=== PATIENT | female | born 1945 | race American Indian/Alaskan Native ===

== ENCOUNTER 2017-05-17 15:30 | Emergency (ER) | payer MEDICARE ==
[2017-05-17 15:35] VITALS: RESP 20
--- NOTE | 2017-05-17 16:03 | C.PDOC ---
Time Seen by Provider: 05/17/17 15:51 Chief Complaint (Nursing): Upper Extremity Problem/Injury Past Medical History Vital Signs: Last Vital Signs Temp 99.1 F 05/17/17 15:34 Pulse 70 05/17/17 15:34 Resp 20 05/17/17 15:34 BP 111/58 L 05/17/17 15:34 Pulse Ox 97 05/17/17 15:34 - Medical History PMH: HTN - [facility] Procedures LEFT HEART CARDIAC CATH (06/19/15) LT HEART ANGIOCARDIOGRAM (06/19/15) - Social History Hx Alcohol Use: No Hx Substance Use: No - Immunization History Hx Tetanus Toxoid Vaccination: No Hx Influenza Vaccination: No Hx Pneumococcal Vaccination: No ED Course And Treatment O2 Sat by Pulse Oximetry: 97 Disposition - Disposition Forms: [employer] (Malaysian) - Scribe Statement The provider has reviewed the documentation as recorded by the Scribe Connie Helms
--- NOTE | 2017-05-17 16:03 | C.PDOC ---
History Of Present Illness 72 year old female was brought to the ED by EMS after tripping and falling in the lobby of her apartment building just prior to arrival. Patient states she feel on her right side and has pain to her right shoulder, knee, and mildly in the ribs. She denies LOC,head trauma. - HPI Time Seen by Provider: 05/17/17 15:51 Chief Complaint (Nursing): Upper Extremity Problem/Injury History Per: Patient, EMS History/Exam Limitations: no limitations Onset/Duration Of Symptoms: Hrs Injury Occurred (Timing): Just Before Arrival Location Of Injury: Right: Arm, Knee (chronic), Shoulder Severity: Moderate Recent travel outside of the [place]: No - Fall Fall:Prior To Injury: Tripped Past Medical History Reviewed: Historical Data, Nursing Documentation, Vital Signs Vital Signs: Last Vital Signs Temp 98.3 F 05/17/17 17:22 Pulse 74 05/17/17 17:22 Resp 20 05/17/17 17:22 BP 138/70 05/17/17 17:22 Pulse Ox 97 05/17/17 17:55 - Medical History PMH: HTN Other Surgeries: hysterectomy - [facility] Procedures LEFT HEART CARDIAC CATH (06/19/15) LT HEART ANGIOCARDIOGRAM (06/19/15) Family History: States: Unknown Family Hx - Social History Hx Alcohol Use: No Hx Substance Use: No - Immunization History Hx Tetanus Toxoid Vaccination: No Hx Influenza Vaccination: No Hx Pneumococcal Vaccination: No Review Of Systems Constitutional: Negative for: Fever, Chills Cardiovascular: Negative for: Chest Pain Respiratory: Negative for: Shortness of Breath Gastrointestinal: Negative for: Nausea, Vomiting Musculoskeletal: Positive for: Shoulder Pain (right shoulder pain), Arm Pain ( right arm pain), Leg Pain (right knee pain ) Neurological: Negative for: Headache, Dizziness Physical Exam - Physical Exam Appears: Non-toxic, No Acute Distress, Other (Patient is obese ) Skin: Warm, Dry, Other (Small ecchymotic lesion to right lateral upper arm ) Head: Atraumatic, Normacephalic, No Tenderness Eye(s): bilateral: Normal Inspection, PERRL, EOMI Oral Mucosa: Moist Neck: Supple Chest: Symmetrical, No Deformity, No Tenderness Cardiovascular: Rhythm Regular Gastrointestinal/Abdominal: Soft, No Tenderness, No Distention, No Guarding, No Rebound Extremity: Normal ROM, Tenderness (tenderness to right lateral shoulder and antertior right knee ), No Calf Tenderness, Capillary Refill (good capillary refill, less than 2 seconds ), No Deformity, No Swelling Neurological/Psych: Oriented x3, Normal Speech ED Course And Treatment O2 Sat by Pulse Oximetry: 97 (room air ) Pulse Ox Interpretation: Normal - Other Rad Right Shoulder Radiograph X-Ray: Viewed By Me, Read By Radiologist Interpretation: FINDINGS: BONES: Normal. No fracture. JOINTS: Preserved glenohumeral relationship, acromioclavicular degenerative change: Mild. SOFT TISSUES: Normal. OTHER FINDINGS: None. IMPRESSION: No acute findings related to/accounting for the clinical presentation. Right Ribs and Chest Radiograph X-Ray: Viewed By Me, Read By Radiologist Interpretation: FINDINGS: RIGHT RIBS: No fracture or focal lesion visualized. LUNGS: Clear. PLEURA: Cardiomegaly. No evidence of acute, significant cardiovascular disease. CARDIOVASCULAR: Normal sized heart. No pulmonary vascular congestion. OTHER FINDINGS: Large gallstone confirmed on CT scan performed [id number]. IMPRESSION: Unremarkable radiographs of the chest and right ribs. No right rib fracture. Right Knee Radiograph X-Ray: Viewed By Me, Read By Radiologist Interpretation: Findings: Examination markedly limited by habitus. Diffuse osseous demineralization limits evaluation for acute fracture lines. Severe degenerative changes including tricompartmental joint space narrowing and tenting of the intercondylar notch. Large suprapatellar and smaller infrapatellar enthesophyte. Suspect chondrocalcinosis. Faint lucency seen on a single view within the mid distal femur which is vertically oriented appears related to degenerative changes and vascular groove however nondisplaced fracture cannot be entirely excluded. No significant suprapatellar joint effusion appreciated. Impression: Examination markedly limited by habitus. Diffuse osseous demineralization and severe degenerative changes as above. Faint lucency seen on a single view within the mid distal femur appears vertically oriented in favored secondary to degenerative changes and possibly vascular groove however nondisplaced fracture cannot be entirely excluded. If indicated, cross-sectional imaging may be considered for further evaluation. Correlate clinically. Progress Note: Studies of the knees, ribs, and shoulder were ordered. Patient was given motrin and ice was applied to areas of impact from fall. XRays reviewed by me and radiology report reviewed. Patient remained alert and was able to ambulate with mild discomfort. I explained results and provided Rx. Recommend rest, ice and to follow up with PCP Disposition Counseled Patient/Family Regarding: Studies Performed, Diagnosis, Need For Followup, Rx Given - Disposition Referrals: Rudy Veras MD [Staff Provider] - Disposition: HOME/ ROUTINE Disposition Time: 16:59 Condition: STABLE Additional Instructions: Your xrays show no fracture and arthritis to knee. Please apply ice to area 15 minutes three times a day. Take Tylenol or Motrin as needed for pain every 6 hours, with food to not upset stomach. Apply gel to areas of pain. Follow up with orthopedic if pain persists over one week. Prescriptions: Diclofenac Sodium [Voltaren] 100 gm TP DAILY #1 gel..gram. Instructions: Contusion in Adults (DC) Forms: [employer] (Maltese) - POA Present On Arrival: Falls Or Trauma - Clinical Impression Clinical Impression: Shoulder contusion, Rib contusion, Knee contusion - PA / POND SAWYER / Resident Statement MD/DO has reviewed & agrees with the documentation as recorded. - Scribe Statement The provider has reviewed the documentation as recorded by the Scribnargis Helms All medical record entries made by the Joseibnargis were at my direction and personally dictated by me. I have reviewed the chart and agree that the record accurately reflects my personal performance of the history, physical exam, medical decision making, and the department course for this patient. I have also personally directed, reviewed, and agree with the discharge instructions and disposition.
[2017-05-17 17:23] VITALS: BP 138/70; PULSE 74; TEMP 98.3
--- NOTE | 2017-05-17 17:24 | RAD ---
PROCEDURE: Radiographs of the Right Shoulder HISTORY: pain s.p fall onto right side COMPARISON: No prior. FINDINGS: BONES: Normal. No fracture. JOINTS: Preserved glenohumeral relationship, acromioclavicular degenerative change: Mild. SOFT TISSUES: Normal. OTHER FINDINGS: None. IMPRESSION: No acute findings related to/accounting for the clinical presentation.
--- NOTE | 2017-05-17 17:24 | RAD ---
PROCEDURE: Radiographs of the Chest and Right Ribs. HISTORY: pain s.p fall COMPARISON: None available. TECHNIQUE: Frontal radiograph of the chest and multiple oblique radiographs of the right ribs were obtained. FINDINGS: RIGHT RIBS: No fracture or focal lesion visualized. LUNGS: Clear. PLEURA: Cardiomegaly. No evidence of acute, significant cardiovascular disease. CARDIOVASCULAR: Normal sized heart. No pulmonary vascular congestion. OTHER FINDINGS: Large gallstone confirmed on CT scan performed [id number] IMPRESSION: Unremarkable radiographs of the chest and right ribs. No right rib fracture.
[2017-05-17 17:34] VITALS: O2SAT 97
--- NOTE | 2017-05-17 17:43 | RAD ---
Right knee radiographs Indication: Pain, status post fall and tube right side Comparison: None available Findings: Examination markedly limited by habitus. Diffuse osseous demineralization limits evaluation for acute fracture lines. Severe degenerative changes including tricompartmental joint space narrowing and tenting of the intercondylar notch. Large suprapatellar and smaller infrapatellar enthesophyte. Suspect chondrocalcinosis. Faint lucency seen on a single view within the mid distal femur which is vertically oriented appears related to degenerative changes and vascular groove however nondisplaced fracture cannot be entirely excluded. No significant suprapatellar joint effusion appreciated. Impression: Examination markedly limited by habitus. Diffuse osseous demineralization and severe degenerative changes as above. Faint lucency seen on a single view within the mid distal femur appears vertically oriented in favored secondary to degenerative changes and possibly vascular groove however nondisplaced fracture cannot be entirely excluded. If indicated, cross-sectional imaging may be considered for further evaluation. Correlate clinically.
== END 2017-05-17 17:22 | disposition home or self-care (01) ==
LOC: C.ER 15:30
DX: S40.011A Contusion of right shoulder, initial encounter (principal); S20.211A Contusion of right front wall of thorax, initial encounter; S80.01XA Contusion of right knee, initial encounter; W01.0XXA Fall on same level from slipping, tripping and stumbling without subsequent striking against object, initial encounter; Y92.038 Other place in apartment as the place of occurrence of the external cause